=== PATIENT | female | born 1975 | race Two or more races ===

== ENCOUNTER 2020-09-28 12:52 | Outpatient (CLI) | payer MEDICARE, OTHER ==
[~2020-09-28] VITALS: Ht 165.1 cm; Wt 82.1 kg
[2020-09-28 13:28] VITALS: BP 136/77
--- NOTE | 2020-10-01 22:14 | Consultation ---
DATE OF CONSULTATION: 09/28/2020 CONSULTING PHYSICIAN: Tommy Lan MD REASON FOR CONSULTATION: Referral for endoscopy. HISTORY OF PRESENT ILLNESS: This is a very pleasant 45-year-old female with history of seizure disorder, asthma, hypertension, has chronic acid reflux disease not responding to Dexilant, referred for endoscopy. PAST MEDICAL HISTORY: 1. Asthma. 2. Hypertension. 3. Seizure disorder. PAST SURGICAL HISTORY: Ovarian cyst. MEDICATIONS: Please see medication reconciliation list. FAMILY HISTORY: Noncontributory. SOCIAL HISTORY: Patient denies any tobacco, alcohol, or drug abuse. ALLERGIES: No known drug allergies. PHYSICAL EXAMINATION: VITAL SIGNS: Temperature 97.3, blood pressure 130/77, pulse is 89, respirations 20. Height is 5 feet 5 inches. Weight is 181. HEENT: Normocephalic, atraumatic. Sclerae anicteric. NECK: Supple. No evidence of obvious lymphadenopathy. CARDIOVASCULAR: Regular rate and rhythm. Plus S1-S2. LUNGS: Clear to auscultation bilaterally. ABDOMEN: Positive bowel sounds. Soft and nontender. No rebound. No guarding. No peritoneal sign. EXTREMITIES: No cyanosis, no clubbing, no edema. ASSESSMENT AND PLAN: This is a 45-year-old female referred for evaluation for endoscopy. Patient currently is on Dexilant, not responding. Plan to add baclofen 20 mg at bedtime and we will go ahead and schedule for endoscopy. I want to thank Dr. Hamm for this kind referral. Tommy Lna M.D. DR: NAMRATA JOB#: [id number] CC: Juan Luis Hamm M.D.; Fax#: [phone]
[2020-10-02] MEDS ORDERED: EDARBYCLOR 40-1 EAC1 ORAL (09:13)
[2020-10-02] MEDS ORDERED: AMLODIPINE BESY10 MG ORAL (09:13)
[2020-10-02] MEDS ORDERED: TEGRETOL200 MG PO (09:14)
[2020-10-02] MEDS ORDERED: CETIRIZINE HCL10 M1 PO (09:14)
[2020-10-02] MEDS ORDERED: PAXIL10 MG ORAL (09:14)
[2020-10-02] MEDS ORDERED: DEXILANT60 MG ORAL (09:14)
[2020-10-02] MEDS ORDERED: CARAFATE1 G1 ORAL (09:14)
[2020-10-02] MEDS ORDERED: ATIVAN1 MG ORAL (09:14)
== END 2020-09-28 14:52 | disposition home or self-care (01) ==
LOC: PAN 12:52
DX: K21.9 Gastro-esophageal reflux disease without esophagitis (principal); G40.909 Epilepsy, unspecified, not intractable, without status epilepticus; I10 Essential (primary) hypertension; J45.909 Unspecified asthma, uncomplicated
CPT/HCPCS: 99203

== ENCOUNTER 2020-10-09 08:45 | Day surgery (SDC) | payer MEDICARE, OTHER ==
[~2020-10-09] VITALS: Ht 165.1 cm; Wt 77.1 kg
[2020-10-09] VITALS (7 sets, daily range): BP systolic 142–197; BP diastolic 86–106
[~2020-10-09 08:45] MED LIST: AMLODIPINE BESY10 MG ORAL; ATIVAN1 MG ORAL; CARAFATE1 G1 ORAL; CETIRIZINE HCL10 M1 PO; DEXILANT60 MG ORAL; EDARBYCLOR 40-1 EAC1 ORAL; PAXIL10 MG ORAL; TEGRETOL200 MG PO
[2020-10-09] MEDS ORDERED: LR 1000ml 1,000 ML IVLG SCH ×2 (09:00→10:15)
--- NOTE | 2020-10-09 10:03 | Short Stay Surgery H&P ---
History of Present Illness History of Present Illness Chief Complaint see office note HPI Mary Beth Chadwick is a 45 year old female who was admitted on for Gerd,Nausea,Vomiting,Cough Patient History Allergies: Coded Allergies: No Known Allergies (Unverified , 10/09/20) Medication History Scheduled Amlodipine Besylate* (Amlodipine Besylate*), Unknown Dose ORAL DAILY, (Reported) Azilsartan Med/Chlorthalidone (Edarbyclor 40-25 Mg Tablet), 1 TAB ORAL DAILY, (Reported) Carbamazepine (Tegretol*), 200 MG PO Q12HR, (Reported) Cetirizine Hcl (ZyrTEC*), 10 MG PO DAILY, (Reported) Dexlansoprazole (Dexilant), 60 MG ORAL DAILY, (Reported) Lorazepam* (Ativan*), 1 MG ORAL BID, (Reported) Paroxetine Hcl* (Paxil*), 10 MG ORAL DAILY, (Reported) Sucralfate* (Carafate*), 1 GM ORAL FOUR TIMES A DAY, (Reported) Physical Exam Vital Signs Last Vital Signs Date Time Temp Pulse Resp B/P (MAP) Pulse Ox O2 Delivery O2 Flow Rate FiO2 10/09/20 09:36 Room Air 10/09/20 09:32 98.5 77 20 156/93 96 Labs Laboratory Tests Test 10/09/20 09:15 Urine HCG, Qualitative Negative (NEGATIVE) Plan Attestation Are the patient's medical conditions optimized for surgery? Tommy Lan MD Oct 09, 2020 10:03
--- NOTE | 2020-10-09 10:03 | Pre-Procedure Note/Attestation ---
Pre-Procedure Note/Attestation Complete Prior to Procedure Planned Procedure: not applicable Procedure Narrative: egd Indications for Procedure Pre-Operative Diagnosis: GERD Attestation I attest that I discussed the nature of the procedure; its benefits; risks and complications; and alternatives (and the risks and benefits of such alternatives), prior to the procedure, with the patient (or the patient's legal client relations representative). I attest that, if there was a reasonable possibility of needing a blood transfusion, the patient (or the patient's legal client relations representative) was given the [facility] standardized written summary, pursuant to the [place] Blood Safety Act ([place] Health and Safety Code # 1645, as amended). I attest that I re-evaluated the patient just prior to the surgery and that there has been no change in the patient's H&P, except as documented below: Tommy Lan MD Oct 09, 2020 10:03
--- NOTE | 2020-10-09 10:14 | Anethesia Preoperative Eval ---
Anesthesia Pre-op PMH/ROS General Date of Evaluation: Oct 09, 2020 Time of Evaluation: 10:12 Anesthesiologist: Brendan ASA Score: ASA 2 Mallampati Score Class I : Soft palate, uvula, fauces, pillars visible Class II: Soft palate, uvula, fauces visible Class III: Soft palate, base of uvula visible Class IV: Only hard plate visible Mallampati Classification: Class II Surgeon: Riky Diagnosis: Abdominal pain Surgical Procedure: EGD Anesthesia History: none Family History: no anesthesia problems Allergies: Coded Allergies: No Known Allergies (Unverified , 10/09/20) Medications: see eMAR Patient NPO?: Yes Past Medical History Cardiovascular: Reports: HTN; Denies: CAD, DE, valve dz, arrhythmia, other Pulmonary: Denies: asthma, COPD, REBECCA, other Gastrointestinal/Genitourinary: Reports: GERD Neurologic/Psychiatric: Reports: depression/anxiety; Denies: dementia, CVA, TIA, other Endocrine: Denies: DM, hypothyroidism, steroids, other HEENT: Denies: cataract (L), cataract (R), glaucoma, [place] (L), [place] (R), other Hematology/Immune: Denies: anemia, DVT, bleeding disorder, other Musculoskeletal/Integumentary: Denies: OA, RA, DJD, DDD, edema, other PMH Narrative: As above PSxH Narrative: See H&P Anesthesia Pre-op Phys. Exam Physician Exam Last Vital Signs Date Time Temp Pulse Resp B/P (MAP) Pulse Ox O2 Delivery O2 Flow Rate FiO2 10/09/20 09:36 Room Air 10/09/20 09:32 98.5 77 20 156/93 96 Constitutional: NAD Neurologic: CN 2-12 intact Cardiovascular: RRR, no M/R/G Respiratory: CTA Gastrointestinal: S/NT/ND Airway Exam Mallampati Score: Class II MO: full Neck: flexible ROM: full Teeth: intact Dentures: no upper, no lower Anesthesia Pre-op A/P Labs Urine Test Test 10/09/20 09:15 Urine HCG, Qualitative Negative (NEGATIVE) Risk Assessment & Plan Assessment: ASA 2 Plan: MAC Status Change Before Surgery: No Nitin Cardona MD Oct 09, 2020 10:14
[2020-10-09] MEDS ORDERED: fentaNYL 100 mcg/2 mL IV PRN (10:15)
[2020-10-09] MEDS ORDERED: Midazolam 2mg/2ml Inj ONE (10:26)
[2020-10-09] MEDS ORDERED: LR 1000ml ONE (10:30)
[2020-10-09] MEDS ORDERED: fentaNYL 100 mcg/2 mL IV ONE (10:30)
--- NOTE | 2020-10-09 10:48 | Endoscopy Procedure Note ---
Endoscopy Procedure Note General Indication for Procedure: vomiting Procedures Performed: EGD Operative Findings/Diagnosis: gastric polyp Specimen: yes Pt Tolerated Procedure Well: Yes Estimated Blood Loss: none Anesthesia Anesthesiologist: arjun Anesthesia: MAC Inserted Devices Implant(s) used?: No GI Core Measures 50 yrs or older w/o bx or poly: Not Applicable 10yrs. F/U recommended: Not Applicable Tommy Lan MD Oct 09, 2020 10:48
--- NOTE | 2020-10-09 10:59 | Immediate Post-Op Evaluation ---
Immediate Post-Op Evalulation Immediate Post-Op Evalulation Procedure: EGD with Bx Date of Evaluation: Oct 09, 2020 Time of Evaluation: 10:58 IV Fluids: 300 Blood Products: none Estimated Blood Loss: none Urinary Output: none Blood Pressure Systolic: 148 Blood Pressure Diastolic: 76 Pulse Rate: 64 Respiratory Rate: 18 O2 Sat by Pulse Oximetry: 99 Temperature (Fahrenheit): 97.8 Pain Score (1-10): 1 Nausea: No Vomiting: No Complications none Patient Status: awake, patent, none Hydration Status: adequate Nitin Cardona MD Oct 09, 2020 10:59
--- NOTE | 2020-10-09 11:28 | 48 Hour Post Anesthesia Eval ---
Post Anesthesia Evaluation Procedure: EGD with Bx Date of Evaluation: Oct 09, 2020 Time of Evaluation: 11:27 Blood Pressure Systolic: 142 0: 72 Pulse Rate: 68 Respiratory Rate: 20 Temperature (Fahrenheit): 97. O2 Sat by Pulse Oximetry: 98 Airway: patent Nausea: No Vomiting: No Pain Intensity: 1 Hydration Status: adequate Cardiopulmonary Status: stable Mental Status/LOC: patient returned to baseline Follow-up Care/Observations: n/a Post-Anesthesia Complications: none Follow-up care needed: ready to discharge Nitin Cardona MD Oct 09, 2020 11:28
--- NOTE | 2020-10-11 01:29 | Procedure Note ---
SURGEON: Tommy Lan M.D. PROCEDURE: Upper endoscopy with biopsy. ANESTHESIA: Per Dr. Nitin Cardona. REASON FOR PROCEDURE: The procedure, risks, benefits, and possible consequences, including hemorrhage, aspiration, perforation and infection, and alternative treatments, were explained to the patient/legal guardian by Dr. Tommy Lan and the patient/legal guardian understood and accepted these risks. INSTRUMENT: Olympus adult flexible upper endoscope. INDICATION: Persistent nausea and vomiting. DESCRIPTION OF PROCEDURE: After informed consent was obtained and the patient was adequately sedated, Olympus upper endoscope was advanced from the mouth into the second portion of the duodenum and retroflexion was performed in the stomach. The patient had evidence of diffuse gastritis. Random biopsies from antrum was obtained to rule out H. pylori infection. The patient had multiple polyps in the body of the stomach highly suspicious for fundic gland polyps, which were biopsied. The patient's GE junction was about 40 cm from the incisors. No evidence of any esophagitis. No evidence of hiatal hernia. The patient has a small inlet patch seen on the upper esophagus. SUMMARY OF FINDINGS: 1. Small inlet patch. 2. Gastritis, status post biopsy. 3. Multiple gastric polyps status post biopsy. RECOMMENDATIONS: Follow biopsy results and treat accordingly. Tommy Lan M.D. DR: MOOSE JOB#: [id number] CC:
== END 2020-10-09 11:45 | disposition home or self-care (01) ==
LOC: GAS 08:45
DX: K29.70 Gastritis, unspecified, without bleeding (principal); R11.2 Nausea with vomiting, unspecified; K31.7 Polyp of stomach and duodenum; Z79.899 Other long term (current) drug therapy; K21.9 Gastro-esophageal reflux disease without esophagitis; I10 Essential (primary) hypertension; F32.9 Major depressive disorder, single episode, unspecified; F41.9 Anxiety disorder, unspecified
CPT/HCPCS: 43239; 81025; 94003; J2250; J2704; J3010; J7120; U0004; 94150